=== PATIENT | female | born 1990 | race Caucasian/White ===

== ENCOUNTER 2016-09-29 12:05 | Emergency (ER) | payer SELFPAY ==
[~2016-09-29 12:05] MED LIST: BACTRIM DS TAB1 EACH PO; CEPHALEXIN500 M1 PO; NO HOME MEDICATIONS; NORCO 325 MG-51 TAB PO; SULFAMETH/TRIME1 TA1 PO
== END 2016-09-29 13:12 | disposition home or self-care (01) ==
LOC: ED 12:05
DX: J06.9 Acute upper respiratory infection, unspecified (principal); Z20.828 Contact with and (suspected) exposure to other viral communicable diseases

== ENCOUNTER 2016-10-03 07:18 | Emergency (ER) | payer SELFPAY ==
[2016-10-03] MEDS ORDERED: ALBUTEROL2.5 MG/3 M IH (12:33)
[2016-10-03] MEDS ORDERED: ZOFRAN ODT8 M1 PO (12:33)
[2016-10-03] MEDS ORDERED: ZITHROMAX Z PA250 MG PO (12:33)
[2016-10-03] MEDS ORDERED: NEB IH (12:33)
[2016-10-03] MEDS ORDERED: TYLENOL WITH CO1 TA1 PO (12:33)
[2016-10-03 12:47] VITALS: BP 104/63
== END 2016-10-03 12:47 | disposition home or self-care (01) ==
LOC: ED 07:18
DX: J18.9 Pneumonia, unspecified organism (principal); R11.0 Nausea; R63.8 Other symptoms and signs concerning food and fluid intake
CPT/HCPCS: J0456; J1885; J7050; J7120

== ENCOUNTER 2016-11-02 16:52 | Emergency (ER) | payer SELFPAY ==
[~2016-11-02 16:52] MED LIST changes: +ALBUTEROL2.5 MG/3 M IH; +NEB IH; +TYLENOL WITH CO1 TA1 PO; +ZITHROMAX Z PA250 MG PO; +ZOFRAN ODT8 M1 PO
== END 2016-11-02 18:56 | disposition home or self-care (01) ==
LOC: ED 16:52
DX: S67.01XA Crushing injury of right thumb, initial encounter (principal); S61.111A Laceration without foreign body of right thumb with damage to nail, initial encounter; V48.4XXA Person boarding or alighting a car injured in noncollision transport accident, initial encounter
CPT/HCPCS: 90715; J1885

== ENCOUNTER → 2016-11-04 | Outpatient (CLI) | payer SELFPAY ==
[2016-11-04 10:09] VITALS: BP 98/50
--- NOTE | 2016-11-04 10:30 | NUR ---
SOAKED R THUMB IN STERILE WATER AND HIBICLEANSE TO LOOSEN SOILED DRESSING. PT DOES NOT TOLERATE THIS PORTION OF TX WELL. DRESSING COMPLETELY REMOVED. REVEALS HEALING AVULSION AROUND NAIL BED WITH SUTURES INTACT. NO ACTIVE BLEEDING NOTED. APPLIED THIN LAYER OF VASELINE, SUPPLIED BY PT, OVER SUTURED AREA THEN GUAZE 4X4 FOR PADDING AND WRAPPED WITH PT OWN 3" KERLIX.
== END ==
LOC: AMSURD 10:01
DX: Z48.00 Encounter for change or removal of nonsurgical wound dressing (principal); S61.001A Unspecified open wound of right thumb without damage to nail, initial encounter

== ENCOUNTER 2016-11-12 12:12 | Emergency (ER) | payer SELFPAY ==
[2016-11-12 12:30] VITALS: BP 121/81
== END 2016-11-12 12:28 | disposition home or self-care (01) ==
LOC: ED 12:12

== ENCOUNTER → 2017-02-12 | Outpatient (CLI) | payer SELFPAY | LOC: RAD 09:33 | DX: Z02.89 Encounter for other administrative examinations (principal) ==

== ENCOUNTER 2017-06-23 11:30 | Outpatient (RCR) | payer SELFPAY | END 2017-07-06 | disposition home or self-care (01) | LOC: PT | DX: Z47.89 Encounter for other orthopedic aftercare (principal) ==

== ENCOUNTER 2017-08-29 11:18 | Emergency (ER) | payer SELFPAY ==
[~2017-08-29] VITALS: Ht 167.6 cm; Wt 115.9 kg
[2017-08-29] MEDS ORDERED: MOBIC15 M1 PO (11:51)
[2017-08-29] MEDS ORDERED: FIORICET 325 MG1 TAB PO (12:34)
[2017-08-29] MEDS ORDERED: ZOFRAN ODT8 M1 PO (12:34)
[2017-08-29 12:47] VITALS: BP 135/53
== END 2017-08-29 12:47 | disposition home or self-care (01) ==
LOC: ED 11:18
DX: G43.909 Migraine, unspecified, not intractable, without status migrainosus (principal); F17.210 Nicotine dependence, cigarettes, uncomplicated
CPT/HCPCS: J1885; J2550

== ENCOUNTER 2018-10-29 03:28 | Emergency (ER) | payer SELFPAY ==
[~2018-10-29 03:28] MED LIST changes: +FIORICET 325 MG1 TAB PO; +MOBIC15 M1 PO
[2018-10-29] MEDS ORDERED: AMOXIL500 M1 PO (04:10)
[2018-10-29] MEDS ORDERED: CIPRODEX 0.3%-7.5 ML OT (04:10)
[2018-10-29 04:14] VITALS: BP 125/84
== END 2018-10-29 04:14 | disposition home or self-care (01) ==
LOC: ED 03:28
DX: H60.502 Unspecified acute noninfective otitis externa, left ear (principal); H66.92 Otitis media, unspecified, left ear; Z88.5 Allergy status to narcotic agent; Z90.49 Acquired absence of other specified parts of digestive tract; Z98.890 Other specified postprocedural states

== ENCOUNTER 2019-05-13 16:30 | Emergency (ER) | payer SELFPAY ==
[~2019-05-13 16:30] MED LIST changes: +AMOXIL500 M1 PO; +CIPRODEX 0.3%-7.5 ML OT
[2019-05-13 18:06] VITALS: BP 109/76
== END 2019-05-13 17:50 | disposition home or self-care (01) ==
LOC: ED 16:30
DX: J20.9 Acute bronchitis, unspecified (principal); J00 Acute nasopharyngitis [common cold]; Z87.891 Personal history of nicotine dependence

== ENCOUNTER → 2020-04-26 | Outpatient (CLI) | payer SELFPAY | LOC: LAB 12:54 | DX: J02.9 Acute pharyngitis, unspecified (principal); M79.10 Myalgia, unspecified site; R09.81 Nasal congestion; Z20.828 Contact with and (suspected) exposure to other viral communicable diseases ==

== ENCOUNTER → 2021-08-31 | Outpatient (CLI) | payer SELFPAY ==
[2021-08-31 10:22] LABS: BASO # 0.03 K/mm3 (0.02-0.10); EOS # 0.19 K/mm3 (0.04-0.40); EOS % 2.6 % (1.0-5.0); HEMATOCRIT 45.1 % (37.0-47.0); LYMPH# 2.59 K/mm3 (1.50-4.00); MEAN CELL VOLUME 95 fl (78-100); MEAN CORPUSCULAR HEMOGLOBIN 30 pg (27-31); MEAN CORPUSCULAR HGB CONC 31 g/dL (33-37); MEAN PLATELET VOLUME 10.7 fl (7.4-10.4); MONO # 0.38 K/mm3 (0.20-0.80); NEU # 4.13 K/mm3 (1.40-6.50); PLATELET COUNT 219 K/mm3 (130-400); RED BLOOD COUNT 4.73 M/mm3 (4.10-5.30); RED CELL DISTRIBUTION WIDTH 12.6 % (11.5-14.5); WHITE BLOOD COUNT 7.3 K/mm3 (4.8-10.8)
[2021-08-31 10:52] LABS: ALBUMIN 3.9 g/dL (3.5-5.0); POTASSIUM 4.1 mmol/L (3.5-5.1)
[2021-08-31 10:54] LABS: CALCIUM 9.3 mg/dL (8.3-10.5)
[2021-08-31 10:57] LABS: TOTAL BILIRUBIN 0.5 mg/dL (0.2-1.2)
== END ==
LOC: LAB 09:53
PROVIDERS: Physician Assistant
DX: Z00.00 Encounter for general adult medical examination without abnormal findings (principal); M79.645 Pain in left finger(s); R63.5 Abnormal weight gain; Z83.3 Family history of diabetes mellitus

== ENCOUNTER → 2023-05-23 | Outpatient (CLI) | payer SELFPAY ==
[~2023-05-23] MED LIST changes: +ADDERALL 10 MG10 MG PO; +ADDERALL 20 MG20 MG PO; +AMBIEN10 MG PO; +AMITRIPTYLINE H25 M2 PO; +BACLOFEN10 M1 PO; +BUTALBITAL, ACE1 TA2 PO; +PACERONE400 MG PO; +RIZATRIPTAN BEN10 M1 PO; +XANAX0.5 M1 PO
== END ==
LOC: RAD 10:58
DX: M77.32 Calcaneal spur, left foot (principal)

== ENCOUNTER → 2023-09-01 | Outpatient (CLI) | payer BC ==
[~2023-09-01] MED LIST changes: +BENZONATATE200 MG PO; +MORGIDOX 1X100100 MG PO; +PREDNISONE10 MG
[2023-09-01 12:34] LABS: BASO # 0.03 K/mm3 (0.02-0.10); EOS # 0.14 K/mm3 (0.04-0.40); EOS % 1.5 % (1.0-5.0); HEMOGLOBIN 14.5 g/dL (12.5-16.0); LYMPH# 1.92 K/mm3 (1.50-4.00); MEAN CELL VOLUME 92 fl (78-100); MEAN CORPUSCULAR HEMOGLOBIN 30 pg (27-31); MEAN CORPUSCULAR HGB CONC 32 g/dL (33-37); MEAN PLATELET VOLUME 9.1 fl (7.4-10.4); MONO # 0.38 K/mm3 (0.20-0.80); NEU # 6.76 K/mm3 (1.40-6.50); PLATELET COUNT 321 K/mm3 (130-400); RED BLOOD COUNT 4.91 M/mm3 (4.10-5.30); RED CELL DISTRIBUTION WIDTH 12.4 % (11.5-14.5); WHITE BLOOD COUNT 9.2 K/mm3 (4.8-10.8)
[2023-09-01 12:47] LABS: CALCIUM 9.3 mg/dL (8.3-10.5)
[2023-09-01 12:48] LABS: TOTAL PROTEIN 6.9 g/dL (6.4-8.3)
[2023-09-01 13:05] LABS: TOTAL BILIRUBIN 0.5 mg/dL (0.2-1.2)
[2023-09-02 07:16] LABS: INSULIN 25 uIU/mL (2-23)
== END ==
LOC: LAB 12:13
PROVIDERS: Physician Assistant
DX: Z13.220 Encounter for screening for lipoid disorders (principal); Z13.29 Encounter for screening for other suspected endocrine disorder; K90.9 Intestinal malabsorption, unspecified; E28.2 Polycystic ovarian syndrome

== ENCOUNTER 2023-09-02 10:41 | Emergency (ER) | payer BC ==
[~2023-09-02] VITALS: Wt 123.2 kg
[~2023-09-02 10:41] MED LIST changes: -BENZONATATE200 MG PO; -MORGIDOX 1X100100 MG PO; -PREDNISONE10 MG
[2023-09-02 12:15] LABS: BASO # 0.02 K/mm3 (0.02-0.10); EOS # 0.03 K/mm3 (0.04-0.40); EOS % 0.3 % (1.0-5.0); HEMATOCRIT 42.4 % (37.0-47.0); HEMOGLOBIN 13.7 g/dL (12.5-16.0); LYMPH# 1.46 K/mm3 (1.50-4.00); MEAN CELL VOLUME 91 fl (78-100); MEAN CORPUSCULAR HEMOGLOBIN 29 pg (27-31); MEAN CORPUSCULAR HGB CONC 32 g/dL (33-37); MEAN PLATELET VOLUME 9.3 fl (7.4-10.4); MONO # 0.86 K/mm3 (0.20-0.80); NEU # 7.24 K/mm3 (1.40-6.50); PLATELET COUNT 278 K/mm3 (130-400); RED BLOOD COUNT 4.67 M/mm3 (4.10-5.30); RED CELL DISTRIBUTION WIDTH 12.4 % (11.5-14.5); WHITE BLOOD COUNT 9.6 K/mm3 (4.8-10.8)
[2023-09-02] MEDS ORDERED: ALBUTEROL2.5 MG/3 M IH (13:08)
[2023-09-02] MEDS ORDERED: BENZONATATE200 MG PO (13:08)
[2023-09-02] MEDS ORDERED: MORGIDOX 1X100100 MG PO (13:08)
[2023-09-02] MEDS ORDERED: PREDNISONE10 MG (13:08)
[2023-09-02 13:40] VITALS: BP 126/76
== END 2023-09-02 13:45 | disposition home or self-care (01) ==
LOC: ED 10:41
PROVIDERS: Nurse Practitioner Family
DX: U07.1 COVID-19 (principal); J21.9 Acute bronchiolitis, unspecified; J40 Bronchitis, not specified as acute or chronic; R53.83 Other fatigue; R04.0 Epistaxis

== ENCOUNTER → 2023-12-18 | Outpatient (CLI) | payer BC ==
[~2023-12-18] MED LIST changes: +BENZONATATE200 MG PO; +MORGIDOX 1X100100 MG PO; +PREDNISONE10 MG
[2024-02-08 14:51] LABS: FOLATE (FOLIC ACID) 14.8; HOMOCYSTEINE SERUM OR PLASMA 7.5
== END ==
LOC: LAB 12:30
PROVIDERS: Physician Assistant
DX: R79.83 Abnormal findings of blood amino-acid level (principal)

== ENCOUNTER 2024-04-06 08:27 | Outpatient (RCR) | payer BC | END 2024-04-26 | disposition home or self-care (01) | LOC: PT | DX: M79.672 Pain in left foot (principal); M79.671 Pain in right foot; Z98.890 Other specified postprocedural states ==

== ENCOUNTER 2024-04-27 08:30 | Outpatient (RCR) | payer BC | END 2024-05-27 | disposition home or self-care (01) | LOC: PT | DX: M79.671 Pain in right foot (principal); M79.672 Pain in left foot ==

== ENCOUNTER → 2024-05-28 | Outpatient (CLI) | payer BC ==
[2024-05-31 20:26] LABS: ANA SCREEN with REFLEX Negative (Negative)
[2024-06-01 05:39] LABS: ANTI-CYC CITRULLINATED PEPT AB 6 units (0-19)
== END ==
LOC: LAB 12:05
PROVIDERS: Physical Medicine & Rehabilitation Sports Medicine
DX: M25.50 Pain in unspecified joint (principal)